=== PATIENT | female | born 1990 | race Asian ===

== ENCOUNTER 2018-09-07 23:53 | Observation (INO) | payer BC ==
[~2018-09-07] VITALS: Ht 160 cm; Wt 74.5 kg
[2018-09-08 00:26] LABS: COLLECTION METHOD CLEAN CATCH
[2018-09-08 00:36] LABS: PH 6 (5-8); SQUAMOUS EPITHELIAL 0-2 /hpf; URINE APPEARANCE Clear; URINE BACTERIA Rare /hpf; URINE BILIRUBIN Negative (NEGATIVE); URINE BLOOD Negative (NEGATIVE); URINE COLOR Straw; URINE GLUCOSE Negative (NEGATIVE); URINE KETONE Negative (NEGATIVE); URINE LEUKOCYTE ESTERASE Negative (NEGATIVE); URINE NITRATE Negative (NEGATIVE); URINE PROTEIN(semi-quant) Negative (NEGATIVE); URINE RBC 0-2 /hpf; URINE UROBILINOGEN Negative (NEGATIVE)
[2018-09-08] MEDS ORDERED: TUMS500 MG (01:02)
[2018-09-08 01:08] LABS: BASO # 0.1 (0.0-0.2); BASO % 0.4 % (0.0-2.0); EOS # 0.3 (0.0-0.7); GRAN # 9.8 (1.4-6.5); GRAN % 64.6 % (42.2-75.2); HEMOGLOBIN 11.2 g/dl (12.5-16.0); LYMPH # 3.7 (1.2-3.4); LYMPH % 24.5 % (20.0-51.0); MEAN CELL VOLUME 84 fl (80.0-100.0); MEAN CORPUSCULAR HEMOGLOBIN 28 pg (27.0-31.0); MEAN CORPUSCULAR HGB CONC 33 g/dl (33.0-37.0); MEAN PLATELET VOLUME 10.3 fl (7.4-10.4); MONO # 1.2 (0.1-0.6); MONO % 7.9 % (1.7-9.3); PLATELET COUNT 330 K/mm3 (130-400); RED BLOOD COUNT 4.01 M/mm3 (4.10-5.30); REDCELL DISTRIBUTION WIDTH-CV 16.3 % (11.5-14.5)
[2018-09-08 01:12] LABS: HEMATOCRIT 33.6 % (37.0-47.0)
[2018-09-08 01:37] LABS: ALANINE AMINOTRANSFERASE 26 U/L (9-52); ALBUMIN 3.7 gm/dL (3.5-5.0); ALKALINE PHOSPHATASE 63 U/L (50-136); ANION GAP 9 mmol/L (7-16); AST,SGOT 27 U/L (15-37); BILIRUBIN,TOTAL < 0.1 mg/dL (0.0-1.0); BLOOD UREA NITROGEN 4 mg/dL (7-17); C-REACTIVE PROTEIN 1.2 mg/dL (0.0-0.9); CALCIUM 9.5 mg/dL (8.4-10.2); CARBON DIOXIDE 21 mmol/L (22-30); CHLORIDE 108 mmol/L (98-107); CREATININE, serum 0.46 mg/dL (0.52-1.25); GLUCOSE 87 mg/dL (74-106); LIPASE 58 U/L (23-300); POTASSIUM 3.8 mmol/L (3.4-5.0); SODIUM 137 mmol/L (137-145); TOTAL PROTEIN 7.1 gm/dL (6.4-8.2)
--- NOTE | 2018-09-08 02:40 | NUR ---
OBSERvation admit from ER 19.2 wks G1. RUQ pain -cholecystitis. pain rated 0. SPeaks some [place].Souse here- interprets for.
[2018-09-08 02:45] VITALS: BP 115/73; PULSE 90; TEMP 98
[2018-09-08 03:10] VITALS: BP 115/73; PULSE 90; TEMP 98
[2018-09-08] MEDS ORDERED: PRENATAL VITAMI1 TA3 PO (03:14)
--- NOTE | 2018-09-08 03:48 | NUR ---
SHELLEY Altamirano is notifying radiology of 0[facility] US.
[2018-09-08 08:30] VITALS: BP 117/75; BP 136/83; PULSE 83; PULSE 95; TEMP 97.5; TEMP 97.9
--- NOTE | 2018-09-08 08:30 | NUR ---
Pt awake and resting in bed. Denies any pain at this time. IV infusing LR at 125ml/hr without difficulty. Radiology called and unsure if US can be done today or will having to wait until AM. 0835:Dr Biswas here. Plan is to review US if able to obtain today. 0930:US tech here and obtained. Will call results to physician. T's doppler at this time. FHR 147-155bpm.
--- NOTE | 2018-09-08 14:30 | NUR ---
Pt doing well after eating lunch. Denies any pain. Dr Biswas called and notified. Orders to DC home. Pt to follow up this week. 1520:DC instructions given. IV discontinued. 1530:Pt to personal vehicle.
== END 2018-09-08 15:30 | disposition home or self-care (01) ==
LOC: COL.ER 23:53 → OB 09-08 02:11
PROVIDERS: Nurse Practitioner; ADMIT Surgery
DX: O99.612 Diseases of the digestive system complicating pregnancy, second trimester (principal); Z3A.20 20 weeks gestation of pregnancy
CPT/HCPCS: G0378; J0295; J3010; J7030; J7120

== ENCOUNTER 2019-01-10 10:12 | Inpatient (IN) | payer BC ==
[~2019-01-10] VITALS: Ht 154.9 cm; Wt 92.7 kg
[~2019-01-10 10:12] MED LIST: PRENATAL VITAMI1 TA3 PO; TUMS500 MG
--- NOTE | 2019-01-10 19:00 | NUR ---
HERE WITH SPOUSE FOR IOL DUE TO PREECLAMPSIA 2140 MANUAL BP CHECK. PT DID NOT TOLERATE AUTOMATIC BP ON L ARM AFTER UNSUCCESSFUL IV ATTEMPT. PT TORE CUFF OFF DUE TO DISCOMFORT. MANUAL READING 150/88.
--- NOTE | 2019-01-10 19:22 | NUR ---
DEPARTURE TO [facility] PER EMS.[facility] "ISA" NOTIFIED OF DEPARTURE. TO FOLLOW IN POV. REPORT RECEIVED EARLIER PER ISA. MY L/D NUMBER PROVIDED IF ANY QUESTIONS
[2019-01-10 19:30] VITALS: TEMP 98.2
[2019-01-10 19:44] VITALS: BP 150/86; PULSE 78; TEMP 98.2
[2019-01-10 19:50] VITALS: BP 150/86; PULSE 78
[2019-01-10] MEDS ORDERED: TRANDATE 100MG100 MG PO (19:53)
[2019-01-10 21:26] LABS: BASO # 0.1 (0.0-0.2); BASO % 0.4 % (0.0-2.0); EOS # 0.2 (0.0-0.7); EOS % 1.4 % (0-4.0); GRAN # 7.4 (1.4-6.5); GRAN % 60.9 % (42.2-75.2); HEMOGLOBIN 12.2 g/dl (12.5-16.0); LYMPH # 3.3 (1.2-3.4); LYMPH % 26.9 % (20.0-51.0); MEAN CELL VOLUME 85 fl (80.0-100.0); MEAN CORPUSCULAR HEMOGLOBIN 29 pg (27.0-31.0); MEAN CORPUSCULAR HGB CONC 34 g/dl (33.0-37.0); MEAN PLATELET VOLUME 12.9 fl (7.4-10.4); MONO # 1.1 (0.1-0.6); MONO % 9.3 % (1.7-9.3); PLATELET COUNT 223 K/mm3 (130-400); RED BLOOD COUNT 4.26 M/mm3 (4.10-5.30); REDCELL DISTRIBUTION WIDTH-CV 14.1 % (11.5-14.5)
[2019-01-10 21:30] VITALS: BP 150/88; PULSE 80
[2019-01-10 21:30] LABS: HEMATOCRIT 36.4 % (37.0-47.0)
[2019-01-10 21:37] LABS: BILIRUBIN,TOTAL 0.2 mg/dL (0.0-1.0); CALCIUM 9.6 mg/dL (8.4-10.2); CREATININE, serum 0.73 (0.52-1.25); POTASSIUM 4.7 mmol/L (3.4-5.0)
[2019-01-10 22:30] VITALS: BP 130/88; PULSE 77
--- NOTE | 2019-01-10 23:00 | NUR ---
2 HOURS SINCE PO CYTOTEC GIVE. INTERMITTEN EFM BEGUN. PT ASLEEP SO MONITORS REMAIN ON. BABY RECORDS INTERMITTENTLY. WNL
[2019-01-10 23:30] VITALS: BP 140/80; PULSE 80
--- NOTE | 2019-01-10 23:32 | NUR ---
MANUAL BP 140/90 DUE TO PT COMPLAINT OF PAIN AT IV SITEWHEN USING AUTO CUFF
[2019-01-11] VITALS (69 sets, daily range): BP systolic 93–186; BP diastolic 58–114; PULSE 62–94; TEMP 97.4–98.6
--- NOTE | 2019-01-11 01:18 | NUR ---
EFM ON, PT TOLERATES AUTO BP BETTER NOW.EVAL FOR DOES 2 CYTOTEC. PT SAYS PAIN IS HAIR 5 SECONDS/ ASLEEP WHEN I ENTERED ROOM.WILL GIVE DOSE 2 WHEN REACTIVE
--- NOTE | 2019-01-11 08:30 | NUR ---
Pt updated on POC after this RN discussed BP with physician. Second IV started in with 20g. Padded siderails applied. MgSO4 assessment performed. Shah catheter inserted with return of clear, yellow urine. Room and pt prepped for MgSO4 infusion. Bed locked in low position. Call light within reach. No questions or concerns at this time.
--- NOTE | 2019-01-11 10:45 | NUR ---
Pt using bed spangler. Difficulty tracing FHR due to maternal position.
[2019-01-12] VITALS (30 sets, daily range): BP systolic 97–153; BP diastolic 58–91; PULSE 68–85; TEMP 98–99.3
--- NOTE | 2019-01-12 06:30 | NUR ---
0615-Recieved shift report from DAVID Mathew. Patient with Mag Sulfate infusion per protocol into left hand IV at 50ml/hr, LR infusion into right hand IV at 25ml/hr. Partially drowsy and oriented x4. Reports pain minmal. Shah to DD, clear yellow urine return. Abdomen with dressing to incision C/D/I. VSS, see flow record. Updated on plan of care. [id number]-Dr. Mohamud notified of Mag level, see phsician notificatioin. 6555-Dr. Mohamud in room. Reviews plan of care with patient. Left hand IV to INT, Mag infusion off per MD order. 8366-Infant to left breast, assisted with latch.
[2019-01-12 07:37] LABS: BASO % 0.2 % (0.0-2.0); EOS # 0.1 (0.0-0.7); EOS % 0.3 % (0-4.0); GRAN # 12.5 (1.4-6.5); GRAN % 72.1 % (42.2-75.2); HEMOGLOBIN 10.5 g/dl (12.5-16.0); LYMPH # 3.3 (1.2-3.4); LYMPH % 18.9 % (20.0-51.0); MEAN CELL VOLUME 86 fl (80.0-100.0); MEAN CORPUSCULAR HEMOGLOBIN 29 pg (27.0-31.0); MEAN CORPUSCULAR HGB CONC 34 g/dl (33.0-37.0); MEAN PLATELET VOLUME 12.8 fl (7.4-10.4); MONO # 1.4 (0.1-0.6); MONO % 7.7 % (1.7-9.3); PLATELET COUNT 217 K/mm3 (130-400); RED BLOOD COUNT 3.61 M/mm3 (4.10-5.30); REDCELL DISTRIBUTION WIDTH-CV 14.5 % (11.5-14.5)
[2019-01-12 07:48] LABS: ALBUMIN 2.6 gm/dL (3.5-5.0); BILIRUBIN,TOTAL 0.3 mg/dL (0.0-1.0); CALCIUM 7.9 mg/dL (8.4-10.2); CREATININE, serum 0.92 (0.52-1.25); POTASSIUM 4.7 mmol/L (3.4-5.0); TOTAL PROTEIN 5.4 gm/dL (6.4-8.2)
[2019-01-12 07:51] LABS: MAGNESIUM 7.9 mg/dL (1.6-2.3)
[2019-01-12 07:52] LABS: HEMATOCRIT 30.9 % (37.0-47.0)
--- NOTE | 2019-01-12 14:00 | NUR ---
1400-PATIENT UP TO AT BEDSIDE. TOOK SEVERAL STEPS WITH STEADY GAIT AND REPORTED PAIN WAS "TOO MUCH." PATIENT CLOSING EYES AND UNABLE TO CONTINUE TO AMBULATE TO BATHROOM AT THIS TIME. RETURNED TO BEDSIDE WITH STANDBY ASSIST OF ONE. ASSISTED INTO BED. CRIS CARE PROVIDED. TRANSFERED TO ROOM 211 AT THIS TIME. VSS, SEE FLOW RECORD. ORIENTED TO ROOM. BERMAN REMAINS TO DD, CLEAR YELLOW URINE. SCHEDULED PAIN MOTRIN AND PRN PAIN MEDICATION GIVEN, SEE EMAR. UPDATED ON SAFETY AND PLAN OF CARE. WILL CONTINUE TO MONITOR.
--- NOTE | 2019-01-12 16:05 | NUR ---
1605- updated on BP 151/91, orders to resume po labetalol now and change BID time for 0700/1900 starting 01/13/19. First dose given. 1630-Pablo discontinued by this RN. IV site in right hand D/C
[2019-01-13 07:00] VITALS: BP 120/71; PULSE 88; TEMP 98.8
[2019-01-13 07:15] LABS: MEAN CELL VOLUME 87 fl (80.0-100.0); MEAN CORPUSCULAR HGB CONC 34 g/dl (33.0-37.0); MEAN PLATELET VOLUME 11.7 fl (7.4-10.4); PLATELET COUNT 192 K/mm3 (130-400); RED BLOOD COUNT 3.09 M/mm3 (4.10-5.30); REDCELL DISTRIBUTION WIDTH-CV 14.6 % (11.5-14.5)
[2019-01-13 07:16] LABS: HEMOGLOBIN 9.1 g/dl (12.5-16.0); MEAN CORPUSCULAR HEMOGLOBIN 29 pg (27.0-31.0)
[2019-01-13 07:29] LABS: ALANINE AMINOTRANSFERASE 15 U/L (9-52); ALBUMIN 2.4 gm/dL (3.5-5.0); ALKALINE PHOSPHATASE 79 U/L (50-136); ANION GAP 6 mmol/L (7-16); AST,SGOT 26 U/L (15-37); BILIRUBIN,TOTAL < 0.1 mg/dL (0.0-1.0); BLOOD UREA NITROGEN 12 mg/dL (7-17); CALCIUM 8.2 mg/dL (8.4-10.2); CARBON DIOXIDE 22 mmol/L (22-30); CHLORIDE 108 mmol/L (98-107); CREATININE, serum 0.82 (0.52-1.25); GLUCOSE 116 mg/dL (74-106); POTASSIUM 4.2 mmol/L (3.4-5.0); SODIUM 136 mmol/L (137-145)
--- NOTE | 2019-01-13 10:04 | NUR ---
Initial visit; Parents thanked for offering blessings for the of their son and for choosing [facility].
--- NOTE | 2019-01-13 11:00 | NUR ---
1130 Attempts to breastfeed. Baby sleepy. Reports baby ate a little.
--- NOTE | 2019-01-13 12:00 | NUR ---
Baby to nursery per father.
--- NOTE | 2019-01-13 14:00 | NUR ---
Ambulates to the bathroom and back to bed. Request pain medication. Ibuprofen 800 mg given as ordered and per request.
--- NOTE | 2019-01-13 15:00 | NUR ---
1515 Called to room by spouse. States patient having pain. Percocet 5/325 mg one given for pain and as ordered.
[2019-01-13 16:30] VITALS: BP 142/77; PULSE 85; TEMP 98.4
[2019-01-13 19:15] VITALS: BP 150/97; PULSE 91; TEMP 98.1
[2019-01-13] MEDS ORDERED: PERCOCET 325 MG1 TA2 PO (19:32)
[2019-01-13] MEDS ORDERED: MOTRIN 800800 MG/TAB PO (19:32)
[2019-01-13 20:20] VITALS: BP 148/84; PULSE 84; TEMP 98.2
[2019-01-14 07:40] VITALS: BP 160/95; PULSE 96; TEMP 98.5
[2019-01-14 11:00] VITALS: BP 149/92; PULSE 77; TEMP 98.7
[2019-01-14 16:00] VITALS: BP 151/93; PULSE 78; TEMP 97.5
[2019-01-14 19:10] VITALS: BP 178/105; PULSE 82; TEMP 98.4
[2019-01-14 20:10] VITALS: BP 163/87; PULSE 84
[2019-01-14 21:05] VITALS: BP 147/82; PULSE 89
[2019-01-15] VITALS (7 sets, daily range): BP systolic 140–162; BP diastolic 89–103; PULSE 76–106; TEMP 98.1–98.2
--- NOTE | 2019-01-15 05:20 | NUR ---
BP 162/98 in right arm, pt sleeping prior to taking blood pressure. Pt then wanted it checked in left arm 167/100. Labetalol 200 mg scheduled for 0700 this am, given early, see SEP.
[2019-01-15] MEDS ORDERED: TRANDATE 200MG200 MG PO (11:50)
[2019-01-15] MEDS ORDERED: PROCARDIA XL 6060 MG PO (11:50)
--- NOTE | 2019-01-15 19:20 | NUR ---
1920 DISMISSED TO HOME ACC BY AND BABY.
== END 2019-01-15 19:20 | disposition home or self-care (01) | DRG 787 ==
LOC: OB 10:12 → LDR 18:59 → OB 01-12 14:30
PROVIDERS: Obstetrics & Gynecology; ADMIT Obstetrics & Gynecology
PROC: 3E033VJ Introduction of Other Hormone into Peripheral Vein, Percutaneous Approach (ICD-10-PCS; 2019-01-10)
PROC: 3E0P7GC Introduction of Other Therapeutic Substance into Female Reproductive, Via Natural or Artificial Opening (ICD-10-PCS; 2019-01-10)
PROC: 10D00Z1 Extraction of Products of Conception, Low, Open Approach (ICD-10-PCS; principal; 2019-01-11)
DX: O14.13 Severe pre-eclampsia, third trimester (principal); D62 Acute posthemorrhagic anemia; O13.4 Gestational [pregnancy-induced] hypertension without significant proteinuria, complicating childbirth; O99.213 Obesity complicating pregnancy, third trimester; O99.013 Anemia complicating pregnancy, third trimester; D64.9 Anemia, unspecified; O99.613 Diseases of the digestive system complicating pregnancy, third trimester; K21.9 Gastro-esophageal reflux disease without esophagitis; O62.0 Primary inadequate contractions; O62.2 Other uterine inertia; O90.81 Anemia of the puerperium; Z3A.37 37 weeks gestation of pregnancy; Z37.0 Single live birth
CPT/HCPCS: J0690; J1885; J2270; J2370; J2400; J2405; J2590; J2795; J3010; J3475; J7120

== ENCOUNTER → 2019-07-22 | Outpatient (CLI) | payer BC ==
[~2019-07-22] MED LIST changes: +MOTRIN 800800 MG/TAB PO; +PERCOCET 325 MG1 TA2 PO; +PROCARDIA XL 6060 MG PO; +TRANDATE 100MG100 MG PO; +TRANDATE 200MG200 MG PO
[2019-07-22 10:58] LABS: BASO # 0.1 (0.0-0.2); BASO % 0.6 % (0.0-2.0); EOS # 0.2 (0.0-0.7); EOS % 1.6 % (0-4.0); GRAN # 6.2 (1.4-6.5); GRAN % 61.3 % (42.2-75.2); HEMATOCRIT 40.4 % (37.0-47.0); HEMOGLOBIN 13.6 g/dl (12.5-16.0); LYMPH % 29.3 % (20.0-51.0); MEAN CELL VOLUME 84 fl (80.0-100.0); MEAN CORPUSCULAR HEMOGLOBIN 28 pg (27.0-31.0); MEAN CORPUSCULAR HGB CONC 34 g/dl (33.0-37.0); MEAN PLATELET VOLUME 9.9 fl (7.4-10.4); MONO # 0.7 (0.1-0.6); MONO % 6.9 % (1.7-9.3); PLATELET COUNT 399 K/mm3 (130-400); RED BLOOD COUNT 4.82 M/mm3 (4.10-5.30); REDCELL DISTRIBUTION WIDTH-CV 13.2 % (11.5-14.5)
[2019-07-22 11:09] LABS: ALBUMIN 4.9 gm/dL (3.5-5.0); BILIRUBIN,TOTAL 0.6 mg/dL (0.0-1.0); CALCIUM 10.2 mg/dL (8.4-10.2); CREATININE, serum 0.67 (0.52-1.25); POTASSIUM 4.2 mmol/L (3.4-5.0); TOTAL PROTEIN 8.5 gm/dL (6.4-8.2)
== END ==
LOC: COL.RAD 10:33 → COL.LAB 10:33
PROVIDERS: Family Medicine
DX: K80.20 Calculus of gallbladder without cholecystitis without obstruction (principal)
CPT/HCPCS: Q9967

== ENCOUNTER 2022-05-18 03:24 | Emergency (ER) | payer BC ==
[~2022-05-18] VITALS: Ht 157.5 cm; Wt 74.5 kg
--- NOTE | 2022-05-18 02:45 | NUR ---
PT WAS BROUGHT IN TO L&B BY EMS WITH PT C/O PAIN IN UPPER RIGHT EPIGASTRIC AREA AND RADIATES TO HER BACK. DENIES REBOUND FLANK PAIN BUT STATES IT IS JUST TENDER. DENIES VAG BLEEDINGOR LEAKING FLUID, DENIES UC'S. BP 170/103, HR 119, RESP 20, TEMP 98.3 SUSEQUENT BP'S 153/99, 149/98. FHT'S OBTAINED WITH DOPPLER 140'S. PT IS 15.4 WEEKS GEST. PREVIOUS C/S IN 2021 FOR PRE-E POSSIBLE GALLSTONES. DR HOGN RN ANTE PARTUM WAS NOTIFIED OF PT'S ARRIVAL, PT'S COMPLAINTS, FHT'S, BP'S AND HX. ORDERS NOTED TO SEND PT TO ER FOR THE ER DOCTOR TO EVALUATE HER. ER CHARGE NURSE WAS NOTIFIED AND SHE CAME TO PICK THE PT UP WITH WHEELCHAIR AND TAKE HER TO THE ER TO BE EVALUATED.
[2022-05-18 03:35] LABS: COLLECTION METHOD CLEAN CATCH
[2022-05-18 03:46] VITALS: TEMP 98
[2022-05-18 03:46] LABS: AMORPHOUS CRYSTAL Present (NOT PRESENT); URINE BACTERIA Many /hpf (NONE SEEN); URINE RBC 0-2 /hpf (0-2)
[2022-05-18 03:47] LABS: PH 7.5 (5.0-8.5); URINE APPEARANCE Hazy (CLEAR/HAZY); URINE BLOOD Negative (NEGATIVE); URINE COLOR Yellow (YELLOW); URINE GLUCOSE Negative (NEGATIVE); URINE KETONE Negative (NEGATIVE); URINE NITRATE Negative (NEGATIVE); URINE PROTEIN(semi-quant) Negative (NEGATIVE); URINE UROBILINOGEN 0.2 E.U/dL (0.2-1.0)
[2022-05-18 03:55] LABS: BASO % 0.3 % (0.0-2.0); EOS # 0.2 K/mm3 (0.0-0.7); EOS % 1.4 % (0.0-4.0); GRAN # 10.1 K/mm3 (1.4-6.5); GRAN % 69.2 % (42.2-75.2); HEMOGLOBIN 11.8 g/dl (12.5-16.0); LYMPH # 3.1 K/mm3 (1.2-3.4); LYMPH % 21.2 % (20.0-51.0); MEAN CELL VOLUME 83 fl (80.0-100.0); MEAN CORPUSCULAR HEMOGLOBIN 29 pg (27-31); MEAN CORPUSCULAR HGB CONC 35 g/dl (33.0-37.0); MEAN PLATELET VOLUME 10.2 fl (7.4-10.4); MONO # 1.1 K/mm3 (0.1-0.6); MONO % 7.3 % (1.7-9.3); PLATELET COUNT 336 K/mm3 (130-400); RED BLOOD COUNT 4.05 M/mm3 (4.10-5.30); REDCELL DISTRIBUTION WIDTH-CV 13.2 % (11.5-14.5)
[2022-05-18 03:56] LABS: HEMATOCRIT 33.5 % (37.0-47.0)
[2022-05-18 04:15] LABS: ALBUMIN 3.4 gm/dL (3.5-5.0); BILIRUBIN,TOTAL 0.5 mg/dL (0.2-1.2); CALCIUM 10.2 mg/dL (8.4-10.2); CREATININE, serum 0.63 mg/dL (0.57-1.11); POTASSIUM 3.9 mmol/L (3.5-4.5); TOTAL PROTEIN 7.5 gm/dL (6.2-8.1)
[2022-05-18 04:52] VITALS: BP 125/84; PULSE 88
[2022-05-18] MEDS ORDERED: PRIL40 PO (05:04)
[2022-05-18] MEDS ORDERED: CEPHALEXIN500 M1 PO (05:05)
[2022-05-18] MEDS ORDERED: ZOFRAN ODT4 MG PO (05:36)
[2022-05-18] MEDS ORDERED: PERCOCET 325 MG1 TA2 PO (05:36)
== END 2022-05-18 05:30 | disposition home or self-care (01) ==
LOC: COL.ER 03:24 → EDSTATUS 03:26 → COL.ER 05:30
PROVIDERS: Personal Emergency Response Attendant
DX: O99.612 Diseases of the digestive system complicating pregnancy, second trimester (principal); K29.70 Gastritis, unspecified, without bleeding; Z3A.15 15 weeks gestation of pregnancy
CPT/HCPCS: J0696; J2270; J2405; J7030

== ENCOUNTER 2022-10-18 15:13 | Outpatient (CLI) | payer BC ==
[~2022-10-18] VITALS: Ht 157.5 cm; Wt 94.1 kg
[~2022-10-18 15:13] MED LIST changes: +CEPHALEXIN500 M1 PO; +PRIL40 PO; +ZOFRAN ODT4 MG PO
--- NOTE | 2022-10-18 15:25 | NUR ---
Pt arrived on unit ambulatory escorted by and sent over from clinic for serial blood pressures and extended monitoring. Pt reports feeling a headache this morning with some right upper quadrant pain but the headache is better this afternoon. Pt denies any regular contractions, leaking of fluid or vaginal bleeding and reports normal movement. EFM and toco started. Serial pressures started. Plan of care for reviewed with pt and at the bedside.
[2022-10-18 15:33] VITALS: BP 145/102; PULSE 103; TEMP 97.9
[2022-10-18] MEDS ORDERED: NATURAL IRON65 MG (15:46)
[2022-10-18 15:50] VITALS: BP 142/92; PULSE 97
[2022-10-18 16:04] VITALS: BP 138/90; PULSE 99
[2022-10-18 16:19] VITALS: BP 136/86; PULSE 102
[2022-10-18 16:34] VITALS: BP 123/70; PULSE 96
[2022-10-18 16:49] VITALS: BP 128/75; PULSE 97
--- NOTE | 2022-10-18 17:10 | NUR ---
CARMELITA by this RN per Dr. Mohamud's order. CARMELITA FT/thick/high. Plan of care for discharge home with follow up in clinic as scheduled and labor precautions reviewed with pt. Pt verbalized an understanding and agreed with the plan.
== END 2022-10-18 17:20 | disposition home or self-care (01) ==
LOC: LDRO 15:13
DX: Z34.93 Encounter for supervision of normal pregnancy, unspecified, third trimester (principal); Z3A.37 37 weeks gestation of pregnancy

== ENCOUNTER 2022-10-19 10:58 | Outpatient (CLI) | payer BC ==
[2022-10-19] VITALS (7 sets, daily range): BP systolic 118–140; BP diastolic 67–96; PULSE 90–103; TEMP 97.9
[~2022-10-19 10:58] MED LIST changes: +NATURAL IRON65 MG
--- NOTE | 2022-10-19 11:05 | NUR ---
Pt arrived on unit ambulatory from clinic for concerns for elevated blood pressures. Pt denies any contractions, leaking of fluid or vaginal bleeding and reports normal movement. EFM and toco monitors started. Serial blood pressures started. Plan of care reviewed with pt.
--- NOTE | 2022-10-19 11:20 | NUR ---
Pt up to the bathroom with use of the timmy steady and without complications. Pt was able to void. Myrtle-care was done. Pt transferred to room 218 with the use of the timmy steady. Oriented to room, bed and call light with in reach. Plan of care reviewed with pt and at the bedside.
[2022-10-19 12:06] LABS: COLLECTION METHOD CLEAN CATCH
[2022-10-19 12:18] LABS: MUCOUS Present (NOT PRESENT); SQUAMOUS EPITHELIAL 0-2 /hpf (0-10); URINE BACTERIA Occasional /hpf (NONE SEEN); URINE RBC 0-2 /hpf (0-2); URINE WBC 0-2 /hpf (0-2)
[2022-10-19 12:22] LABS: URINE APPEARANCE Clear (CLEAR/HAZY); URINE BLOOD Negative (NEGATIVE); URINE COLOR Yellow (YELLOW); URINE GLUCOSE Negative (NEGATIVE); URINE KETONE Negative (NEGATIVE); URINE NITRATE Negative (NEGATIVE); URINE PROTEIN(semi-quant) Negative (NEGATIVE); URINE UROBILINOGEN 0.2 E.U/dL (0.2-1.0)
[2022-10-19 12:29] LABS: ALBUMIN 2.8 gm/dL (3.5-5.0); BILIRUBIN,TOTAL 0.3 mg/dL (0.2-1.2); CALCIUM 9.4 mg/dL (8.4-10.2); CREATININE, serum 0.59 mg/dL (0.57-1.11); POTASSIUM 4.3 mmol/L (3.5-4.5); TOTAL PROTEIN 6.4 gm/dL (6.2-8.1)
[2022-10-19 12:56] LABS: BASO % 0.3 % (0.0-2.0); EOS # 0.1 K/mm3 (0.0-0.7); GRAN # 9.5 K/mm3 (1.4-6.5); GRAN % 69.4 % (42.2-75.2); HEMOGLOBIN 12.7 g/dl (12.5-16.0); LYMPH # 2.6 K/mm3 (1.2-3.4); LYMPH % 18.9 % (20.0-51.0); MEAN CELL VOLUME 83 fl (80.0-100.0); MEAN CORPUSCULAR HEMOGLOBIN 29 pg (27-31); MEAN CORPUSCULAR HGB CONC 35 g/dl (33.0-37.0); MEAN PLATELET VOLUME 11.1 fl (7.4-10.4); MONO # 1.3 K/mm3 (0.1-0.6); MONO % 9.4 % (1.7-9.3); PLATELET COUNT 264 K/mm3 (130-400); RED BLOOD COUNT 4.37 M/mm3 (4.10-5.30); REDCELL DISTRIBUTION WIDTH-CV 14.6 % (11.5-14.5)
[2022-10-19 12:57] LABS: HEMATOCRIT 36.3 % (37.0-47.0)
--- NOTE | 2022-10-19 13:00 | NUR ---
Discharge instructions and follow up care with scheduled moved to Monday 10/[address] Samuel all reviewed with pt and . Pt verbalized an understanding, agreed with the plan and states no questions or concerns at this time.
== END 2022-10-19 13:10 | disposition home or self-care (01) ==
LOC: LDRO 10:58
PROVIDERS: Obstetrics & Gynecology
DX: Z34.90 Encounter for supervision of normal pregnancy, unspecified, unspecified trimester (principal); Z3A.00 Weeks of gestation of pregnancy not specified

== ENCOUNTER 2022-10-23 09:56 | Inpatient (IN) | payer BC ==
[~2022-10-23] VITALS: Ht 157.5 cm; Wt 94.1 kg
[2022-10-23] VITALS (15 sets, daily range): BP systolic 108–143; BP diastolic 75–90; PULSE 80–103; TEMP 98–98.1
[2022-10-23 10:54] LABS: BASO # 0.1 K/mm3 (0.0-0.2); BASO % 0.3 % (0.0-2.0); EOS # 0.1 K/mm3 (0.0-0.7); EOS % 0.9 % (0.0-4.0); GRAN # 9.7 K/mm3 (1.4-6.5); GRAN % 67.3 % (42.2-75.2); HEMATOCRIT 39.2 % (37.0-47.0); HEMOGLOBIN 13.4 g/dl (12.5-16.0); LYMPH # 3.2 K/mm3 (1.2-3.4); LYMPH % 22.3 % (20.0-51.0); MEAN CELL VOLUME 83 fl (80.0-100.0); MEAN CORPUSCULAR HEMOGLOBIN 28 pg (27-31); MEAN CORPUSCULAR HGB CONC 34 g/dl (33.0-37.0); MEAN PLATELET VOLUME 10.8 fl (7.4-10.4); MONO # 1.1 K/mm3 (0.1-0.6); MONO % 7.8 % (1.7-9.3); PLATELET COUNT 279 K/mm3 (130-400); RED BLOOD COUNT 4.73 M/mm3 (4.10-5.30); REDCELL DISTRIBUTION WIDTH-CV 14.4 % (11.5-14.5)
[2022-10-23 13:33] LABS: ALBUMIN 2.9 gm/dL (3.5-5.0); BILIRUBIN,TOTAL 0.3 mg/dL (0.2-1.2); CALCIUM 9.3 mg/dL (8.4-10.2); CREATININE, serum 0.64 mg/dL (0.57-1.11); TOTAL PROTEIN 6.5 gm/dL (6.2-8.1)
[2022-10-23] MEDS ORDERED: PERCOCET 325 MG1 TA2 PO (14:52)
[2022-10-23] MEDS ORDERED: MOTRIN 800800 MG/TAB PO (14:52)
[2022-10-24 00:10] VITALS: BP 132/89; PULSE 95; TEMP 97.9
[2022-10-24 04:30] VITALS: BP 151/99; PULSE 99; TEMP 97.7
[2022-10-24 07:00] VITALS: BP 137/89; PULSE 110; TEMP 97.8
--- NOTE | 2022-10-24 09:37 | NUR ---
Initial visit; Parents thanked for offering congratulations and Blessings for the of their son. welcomed family to our hospital and thanked them for choosing [facility].
[2022-10-24 16:00] VITALS: BP 130/82; PULSE 97; TEMP 98.4
[2022-10-24 20:13] VITALS: BP 140/89; PULSE 99; TEMP 97.9
--- NOTE | 2022-10-24 22:30 | NUR ---
PT UP IN HALLWAY- WALKS AROUND THE UNIT TWO TIMES. PT GIVEN ICE PACK TO PUT ON INCISION TO EASE DISCOMFORT. PT IS PASSING GAS
[2022-10-25 02:51] VITALS: BP 138/79; PULSE 89; TEMP 97.9
[2022-10-25 08:00] VITALS: BP 140/97; PULSE 101; TEMP 98.5
--- NOTE | 2022-10-25 11:00 | NUR ---
1100 PT CALLED OUT STATING SHE WANTED TO BE DISCHARGED TODAY. 1120 THIS RN WENT INTO ROOM WITH D/C PAPERWORK AND PT REQUESTED TO BE DISCHARGED THIS EVENING.
== END 2022-10-25 17:45 | disposition home or self-care (01) | DRG 788 ==
LOC: OB 09:56
PROVIDERS: ADMIT Obstetrics & Gynecology
PROC: 10D00Z1 Extraction of Products of Conception, Low, Open Approach (ICD-10-PCS; principal; 2022-10-23)
DX: O34.211 Maternal care for low transverse scar from previous cesarean delivery (principal); O13.4 Gestational [pregnancy-induced] hypertension without significant proteinuria, complicating childbirth; Z3A.38 38 weeks gestation of pregnancy; Z37.0 Single live birth; Z23 Encounter for immunization
CPT/HCPCS: J0171; J0690; J1885; J2370; J2405; J2590; J7120

== ENCOUNTER 2023-05-17 18:37 | Emergency (ER) | payer BC ==
[~2023-05-17] VITALS: Ht 157.5 cm; Wt 80.9 kg
[~2023-05-17 18:37] MED LIST changes: +NORCO 325 MG-51 TAB PO; -PRENATAL VITAMI1 TA3 PO; +PROTONIX 40MG T40 MG PO; +QUALITY CHOICE1 TA7 PO
[2023-05-17 18:49] VITALS: TEMP 98.2
[2023-05-17 19:28] LABS: BASO # 0.1 K/mm3 (0.0-0.2); BASO % 0.5 % (0.0-2.0); EOS # 0.3 K/mm3 (0.0-0.7); EOS % 2.2 % (0.0-4.0); GRAN % 53.2 % (42.2-75.2); HEMATOCRIT 40.7 % (37.0-47.0); HEMOGLOBIN 14.1 g/dl (12.5-16.0); LYMPH # 4.6 K/mm3 (1.2-3.4); LYMPH % 34.9 % (20.0-51.0); MEAN CELL VOLUME 83 fl (80.0-100.0); MEAN CORPUSCULAR HEMOGLOBIN 29 pg (27-31); MEAN CORPUSCULAR HGB CONC 35 g/dl (33.0-37.0); MEAN PLATELET VOLUME 10.5 fl (7.4-10.4); MONO # 1.2 K/mm3 (0.1-0.6); MONO % 8.7 % (1.7-9.3); PLATELET COUNT 351 K/mm3 (130-400); RED BLOOD COUNT 4.91 M/mm3 (4.10-5.30); REDCELL DISTRIBUTION WIDTH-CV 13.1 % (11.5-14.5)
[2023-05-17 19:42] LABS: BILIRUBIN,TOTAL 0.6 mg/dL (0.2-1.2); C-REACTIVE PROTEIN 0.73 mg/dL (0.00-0.50); CALCIUM 9.9 mg/dL (8.4-10.2); CREATININE, serum 0.71 mg/dL (0.57-1.11); POTASSIUM 4.1 mmol/L (3.5-4.5); TOTAL PROTEIN 7.6 gm/dL (6.2-8.1)
[2023-05-17 20:58] LABS: COLLECTION METHOD CLEAN CATCH
[2023-05-17 21:07] LABS: URINE APPEARANCE Clear (CLEAR/HAZY); URINE BLOOD Negative (NEGATIVE); URINE COLOR Yellow (YELLOW); URINE GLUCOSE Negative (NEGATIVE); URINE KETONE Negative (NEGATIVE); URINE NITRATE Negative (NEGATIVE); URINE PROTEIN(semi-quant) Negative (NEGATIVE); URINE UROBILINOGEN 0.2 E.U/dL (0.2-1.0)
[2023-05-17 21:08] LABS: URINE BACTERIA Moderate /hpf (NONE SEEN)
[2023-05-17] MEDS ORDERED: ZOFRAN ODT4 MG PO (21:51)
[2023-05-17 22:55] VITALS: BP 142/99; PULSE 80
== END 2023-05-17 22:55 | disposition home or self-care (01) ==
LOC: COL.ER 18:37
PROVIDERS: Emergency Medicine
DX: R10.9 Unspecified abdominal pain (principal); G89.18 Other acute postprocedural pain; R53.83 Other fatigue; R11.0 Nausea; Z90.49 Acquired absence of other specified parts of digestive tract
CPT/HCPCS: J1885; J2405; J7030; Q9967